=== PATIENT | male | born 1955 | race Caucasian/White ===

== ENCOUNTER 2019-08-11 18:09 | Emergency (ER) | payer OTHER ==
[2019-08-11] MEDS ORDERED: IBUPROFEN 400 MG TABLET (FP) PO ONE ×2 (18:14→18:26)
--- NOTE | 2019-08-11 18:14 | PDOC ---
History of Present Illness <Yuval Ordonez - Last Filed: 08/11/19 19:57> - General History Source: Patient Exam Limitations: No Limitations - History of Present Illness Initial Comments: 64 yo M with a hx of HTN presents to the emergency department with fingertip avulsion of the right hand after using a table saw working on a wood project. per the patient, he was distracted by an object falling and reached over without keeping track of his hand and was injured. The patient was unable to locate the distal portion of the 4th digit finger tip. Denies the following: fever, chills, SOB, chest pain, nausea, vomiting, diarrhea, hematochezia, and leg pain/swelling. Denies DM. Allergies: NKDA <Rd Kaba - Last Filed: 08/13/19 11:16> - General Chief Complaint: Injury Stated Complaint: AVULSION TO RIGHT MID AND RING FINGER Past History <Yuval Ordonez - Last Filed: 08/11/19 19:57> <Rd Kaba - Last Filed: 08/13/19 11:16> - Past Medical History Allergies/Adverse Reactions: Allergies Allergy/AdvReac Type Severity Reaction Status Date / Time No Known Allergies Allergy Unverified 08/11/19 18:13 Home Medications: Ambulatory Orders Cephalexin Monohydrate [Keflex] 500 mg PO Q6H #30 capsule 08/11/19 Enalapril Maleate 2.5 mg PO DAILY 08/11/19 Review of Systems - Review of Systems Able to Perform ROS?: Yes Is the patient limited Greek proficient: No Constitutional: No: Chills, Diaphoresis, Fever, Weakness HEENTM: No: Eye Pain, Ear Pain, Nose Pain, Throat Pain, Mouth Pain Respiratory: No: Cough, Shortness of Breath, Hemoptysis Cardiac (ROS): No: Chest Pain, Lightheadedness, Palpitations, Syncope ABD/GI: No: Constipated, Diarrhea, Nausea, Rectal Bleeding, Vomiting, Tarry Stools : No: Burning, Dysuria, Hematuria Musculoskeletal: Yes: Joint Pain (at the distal phalanx of the 4th and 3rd digit of the right hand). No: Back Pain Integumentary: No: Bruising, Dryness, Erythema, Rash Neurological: No: Headache, Numbness, Tingling, Tremors Psychiatric: No: Change in Appetite Endocrine: No: Unexplained Weight Loss Hematologic/Lymphatic: No: Anemia <SendyRd - Last Filed: 08/13/19 11:16> *Physical Exam - Vital Signs Last Vital Signs Temp Pulse Resp BP Pulse Ox 97.8 F 67 18 159/105 H 97 08/11/19 18:13 08/11/19 18:13 08/11/19 18:13 08/11/19 18:13 08/11/19 18:13 <Yuval Ordonez - Last Filed: 08/11/19 19:57> - Physical Exam General Appearance: Yes: Nourished, Appropriately Dressed. No: Apparent Distress, Intoxicated HEENT: positive: EOMI, TAMIKA, Normal Voice, Symmetrical, Pharynx Normal, Hearing Grossly Normal. negative: Pale Conjunctivae, Scleral Icterus (R), Scleral Icterus (L), Muffled/Hoarse voice, Pharyngeal Erythema, Tonsillar Exudate, Tonsillar Erythema, Nasal Congestion, Rhinorrhea, Sinus Tenderness, Excessive drooling Neck: positive: Trachea midline, Supple. negative: Tender, Lymphadenopathy (R) , Lymphadenopathy (L), Tender lateral, Tender midline Respiratory/Chest: positive: Lungs Clear, Normal Breath Sounds. negative: Chest Tender, Respiratory Distress, Accessory Muscle Use, Crackles, Rales, Rhonchi, Stridor, Wheezing Cardiovascular: positive: Regular Rhythm, Regular Rate, S1, S2. negative: Systolic Murmur Gastrointestinal/Abdominal: positive: Normal Bowel Sounds, Flat, Soft. negative : Tender, Distended, Guarding, Rebound Lymphatic: negative: Adenopathy Musculoskeletal: positive: Normal Inspection. negative: CVA Tenderness, Vertebral Tenderness Extremity: positive: Other (fingertip avulsion of the right hand at the distal portion of the 4th digit with complete loss of the fingernail with hemostasis achieved. 3rd distal portion of the phalanx has soft tissue injury avulsion injury without nail involvement. ) Integumentary: positive: Normal Color, Dry, Warm Neurologic: positive: Fully Oriented, Alert, Normal Mood/Affect <Rd Kaba - Last Filed: 08/13/19 11:16> ED Treatment Course - Medications Given in the ED: ED Medications Discontinued Medications Generic Name Dose Route Start Last Admin Trade Name Freq PRN Reason Stop Dose Admin Cephalexin HCl 500 mg 08/11/19 19:21 08/11/19 19:33 Keflex - PO 08/11/19 19:22 500 mg ONCE ONE Administration Diphtheria/Tetanus/Acell Pertussis 0.5 ml 08/11/19 18:16 08/11/19 18:30 Boostrix - IM 08/11/19 18:17 0.5 ml .ONCE ONE Administration Ibuprofen 800 mg 08/11/19 18:14 08/11/19 18:30 Motrin - PO 08/11/19 18:15 800 mg ONCE ONE Administration <Yuval Ordonez - Last Filed: 08/11/19 19:57> Medical Decision Making - Medical Decision Making 64 yo M with a hx of HTN presents to the emergency department with fingertip avulsion of the right hand after using a table saw working on a wood project. per the patient, he was distracted by an object falling and reached over without keeping track of his hand and was injured. Initial vitals: Initial Vital Signs Temp Pulse Resp BP Pulse Ox 97.8 F 67 18 159/105 H 97 08/11/19 18:13 08/11/19 18:13 08/11/19 18:13 08/11/19 18:13 08/11/19 18:13 WOrk up: patient presents with an avulsion injury of the distal phalanx of the right hand more severely at the right hand with loss of nail without exposure of bone and soft tissue avulsion of the distal phalanx of the third digit. The patient will require an xray to determine if there is a tuft fracture and retention of FB Xray shows tuft fracture. Patient was prescribed 500 mg of keflex for abx coverage. Also given ibuprofen and boostrix. A page was sent to Dr. Sanders's office at 6:57 pm and awaiting call back. The remainder of the care will be managed by Dr. Ordonez. Likely will need next day follow up with orthopedics for tuft fracture evaluation. <Rd Kaba - Last Filed: 08/13/19 11:16> Discharge - Discharge Information Problems reviewed: Yes - Admission No <Yuval Ordonez - Last Filed: 08/11/19 19:57> - Discharge Information Problems reviewed: Yes <Rd Kaba - Last Filed: 08/13/19 11:16> - Discharge Information Clinical Impression/Diagnosis: Fingertip avulsion Qualifiers: Encounter type: initial encounter Qualified Code(s): S61.209A - Unspecified open wound of unspecified finger without damage to nail, initial encounter - Additional Discharge Information Prescriptions: Cephalexin Monohydrate [Keflex] 500 mg PO Q6H #30 capsule - Follow up/Referral Referrals: Ronnell Villeda MD [Staff Physician] - 24 hours - Patient Discharge Instructions Patient Printed Discharge Instructions: DI for Avulsion Fracture Additional Instructions: See Dr. Villeda 9 AM tomorrow in his office as directed. You will need further treatment by hand specialist to repair the wound. - Post Discharge Activity Work/Back to School Note: Back to Work
[2019-08-11] MEDS ORDERED: DIPHTH,PERTUSS(ACELL),TET 0.5 ML DISP.SYRIN IM ONE ×2 (18:16→18:26)
[2019-08-11 18:24] VITALS: PULSE 67; TEMP 97.8; BMI 25.1
--- NOTE | 2019-08-11 18:39 | PDOC ---
Attending Attestation - Resident Resident Name: Rd Kaba - ED Attending Attestation I have performed the following: I have examined & evaluated the patient, The case was reviewed & discussed with the resident, I agree w/resident's findings & plan, Exceptions are as noted - HPI HPI: 08/11/19 18:37 Fingertip avulsion with table saw immediately [employer]. Bleeding, pain. No other injuries. 08/11/19 18:37 Healthy male, except for mild hypertension on lisinopril. No diabetes - Physicial Exam PE: 08/11/19 18:37 Alert, vital signs stable Fingertip avulsion right fourth finger, involving the entire nail and soft tissue of the distal phalanx. There appears to be adequate coverage of the bone. Bleeding is controlled. No tissue fragments were recovered. 08/11/19 18:38 - Medical Decision Making 08/11/19 18:38 Assessment: Fingertip avulsion Plan: X-ray, hand surgery consult. Antibiotics, tetanus, and analgesics. X-ray shows fingertip avulsion with fracture and avulsion of the tuft of the distal phalanx. Orthopedic consultation called. Antibiotics administered. 08/11/19 19:53 Orthopedics paged. Spoke by phone with Dr. Sanders. Describe the injury. He recommended to cleanse, bandage with Xeroform, and sent to the office in the morning to see Dr. Villeda, hand surgeon. This was discussed with the patient, he understands and agrees to go to the office at 9 AM tomorrow. Phone number, address, and directions were given. In the meantime rest and elevate the hand. 08/12/19 07:20 The fingertip was dressed with bacitracin, Xeroform, 2 x 2, and Aníbal. The patient was comfortable after dressing, pain was controlled, was discharged to see Dr. Villeda in the morning. Fully ambulatory and in minimal distress.
[2019-08-11] MEDS ORDERED: CEPHALEXIN MONOHYDRATE 500 MG CAPSULE (UD) PO ONE (19:21)
[2019-08-11] MEDS ORDERED: CEPHALEXIN MONOHYDRATE 500 MG CAPSULE (UD) ONE ×2 (19:39→19:41)
[2019-08-11 20:11] VITALS: BP 151/94
== END 2019-08-11 20:11 ==
LOC: FER 18:09
PROC: 3E0234Z Introduction of Serum, Toxoid and Vaccine into Muscle, Percutaneous Approach (ICD-10-PCS; principal; 2019-08-11)
DX: S61.202A Unspecified open wound of right middle finger without damage to nail, initial encounter (principal); S61.204A Unspecified open wound of right ring finger without damage to nail, initial encounter; W29.8XXA Contact with other powered hand tools and household machinery, initial encounter; Y93.89 Activity, other specified; Y92.89 Other specified places as the place of occurrence of the external cause
CPT/HCPCS: 73140-TC-RT-FY; 90715; 99283-25